=== PATIENT | female | born 2000 | race Caucasian/White ===

== ENCOUNTER 2020-09-23 10:18 | Emergency (ER) | payer OTHER ==
[~2020-09-23] VITALS: Ht 162.6 cm; Wt 47.7 kg
[2020-09-23 10:25] VITALS: TEMP 98.4
[2020-09-23 10:40] LABS: COLLECTION METHOD CLEAN CATCH
[2020-09-23 10:46] LABS: PH 7 (5-8); SQUAMOUS EPITHELIAL 0-2 /hpf; URINE APPEARANCE Hazy; URINE BACTERIA Many /hpf; URINE BILIRUBIN Negative (NEGATIVE); URINE BLOOD 2+ (NEGATIVE); URINE COLOR Amber; URINE GLUCOSE Negative (NEGATIVE); URINE KETONE Negative (NEGATIVE); URINE LEUKOCYTE ESTERASE 3+ (NEGATIVE); URINE NITRATE Positive (NEGATIVE); URINE PROTEIN(semi-quant) Negative (NEGATIVE)
[2020-09-23] MEDS ORDERED: CEFTIN500 MG PO (11:17)
[2020-09-23] MEDS ORDERED: ZOFRAN ODT4 MG PO (11:17)
[2020-09-23 11:30] VITALS: BP 104/62; PULSE 80
== END 2020-09-23 11:30 | disposition home or self-care (01) ==
LOC: COL.ER 10:18
PROVIDERS: Nurse Practitioner
DX: N39.0 Urinary tract infection, site not specified (principal); Z32.02 Encounter for pregnancy test, result negative

== ENCOUNTER 2020-11-01 10:51 | Emergency (ER) | payer OTHER ==
[~2020-11-01] VITALS: Ht 162.6 cm; Wt 47.7 kg
[~2020-11-01 10:51] MED LIST: CEFTIN500 MG PO; ZOFRAN ODT4 MG PO
[2020-11-01 10:57] VITALS: TEMP 98.5
[2020-11-01 11:06] LABS: COLLECTION METHOD CLEAN CATCH
[2020-11-01 11:15] LABS: PH 8 (5-8); SQUAMOUS EPITHELIAL None Seen /hpf; URINE APPEARANCE Clear; URINE BACTERIA Moderate /hpf; URINE BILIRUBIN Negative (NEGATIVE); URINE BLOOD 1+ (NEGATIVE); URINE COLOR Yellow; URINE GLUCOSE Negative (NEGATIVE); URINE KETONE Negative (NEGATIVE); URINE LEUKOCYTE ESTERASE 3+ (NEGATIVE); URINE NITRATE Negative (NEGATIVE); URINE PROTEIN(semi-quant) Negative (NEGATIVE); URINE RBC 0-2 /hpf; URINE UROBILINOGEN Negative (NEGATIVE)
[2020-11-01] MEDS ORDERED: OMNICEF 300MG300 MG PO (11:56)
[2020-11-01 12:21] VITALS: BP 111/67; PULSE 78
== END 2020-11-01 12:21 | disposition home or self-care (01) ==
LOC: COL.ER 10:51
PROVIDERS: Family Medicine
DX: N39.0 Urinary tract infection, site not specified (principal)